=== PATIENT | male | born 1955 | race Hispanic/Latino ===

== ENCOUNTER → 2020-12-02 | Outpatient (CLI) | payer MEDICARE | END | disposition home or self-care (01) | LOC: RAH 07:36 | PROVIDERS: ATTEND Internal Medicine | DX: M25.571 Pain in right ankle and joints of right foot (principal); M77.31 Calcaneal spur, right foot; M17.11 Unilateral primary osteoarthritis, right knee; I70.201 Unspecified atherosclerosis of native arteries of extremities, right leg; M25.78 Osteophyte, vertebrae; M43.07 Spondylolysis, lumbosacral region; M51.37 Other intervertebral disc degeneration, lumbosacral region; M48.07 Spinal stenosis, lumbosacral region | CPT/HCPCS: 72100; 73562; 73610 ==

== ENCOUNTER → 2025-06-19 | Outpatient (CLI) | payer MEDICARE ==
--- NOTE | 2025-06-21 10:59 | HMCIMG ---
SKULL - 4 VIEWS INDICATION: Fall COMPARISON: None FINDINGS: AP, left and right lateral, and Water's views. No evidence for depressed or displaced skull fracture. Nasal bone is intact. Nasal septum is midline. Orbital vaughan are intact. Visible paranasal sinuses and mastoid air cells are clear. IMPRESSION: No evidence for depressed or displaced skull fracture.
--- NOTE | 2025-06-21 11:49 | HMCIMG ---
RIBS UNILAT 2V LT REASON: RIB PAIN ON LEFT SIDE TECHNIQUE: 4 views were obtained. FINDINGS: There is no evidence of fracture or dislocation. There is no joint effusion. The soft tissues appear unremarkable. There is no evidence of a radiopaque foreign body. There is mild osteopenia. There is calcification of costochondral cartilage. There appears to be a bulla seen in the left perihilar region. IMPRESSION: No acute fracture. Osteopenia
--- NOTE | 2025-06-25 16:24 | HMCIMG ---
CR LEFT HAND, 3 VIEW Clinical History: Pain in left fingers Technique: Three-view radiographs of the left hand were obtained, including PA, oblique, and lateral projections. Findings: Bones: No acute fracture or aggressive appearing osseous lesion is identified. Mild juxta-articular osteopenia is noted. Joints: No evidence of dislocation is present. The joint spaces are normal in width and alignment. Soft Tissues: The soft tissues appear within normal limits. No radiopaque foreign body is seen. IMPRESSION: 1. No acute osseous injury or significant abnormality. /Dowell
== END | disposition home or self-care (01) ==
LOC: RAH 14:41
PROVIDERS: ATTEND Internal Medicine
DX: M85.88 Other specified disorders of bone density and structure, other site (principal); R07.89 Other chest pain; M27.2 Inflammatory conditions of jaws; M79.645 Pain in left finger(s); Y04.0XXA Assault by unarmed brawl or fight, initial encounter
CPT/HCPCS: 70260; 71100; 73130